=== PATIENT | male | born 1945 | race Caucasian/White ===

== ENCOUNTER → 2022-03-08 10:54 | Outpatient (CLI) | payer MEDICARE, SELFPAY ==
--- NOTE | 2022-03-08 | DI.RAD.S_ITS ---
PROCEDURE: FL BARIUM SWALLOW W SPEECH INDICATIONS: CHOKING COMPARISON: None. TECHNIQUE: Examination was conducted in conjunction with speech pathology per standard protocol. In the lateral projection, filming was performed of the patient swallowing. AP projection filming may also be performed with patient swallowing. COMPARISON: FINDINGS: Function: The oral preparatory phase appears normal, with proper containment. The subsequent oral propulsive phase, pharyngeal phase, and esophageal phase of swallowing also appear normal with all proffered substances. No laryngotracheal penetration or aspiration. No pathologic vallecular pooling. Morphology: No cricopharyngeal bar is identified. No cervical esophageal webs. No Zenker's diverticulum. No strictures. IMPRESSION: No laryngotracheal penetration or aspiration. Limited evaluation of the esophagus demonstrated distal esophageal dysmotility. Please see independent report generated by the speech pathologist for further detailed specifics and characterization of the modified speech swallow study. Dictated by: Leigh Vidal MD, PhD on 03/08/2022 at 13:29 Approved by: Leigh Vidal MD, PhD on 03/08/2022 at 13:30
--- NOTE | 2022-03-08 12:25 | ST.SWALLOW ---
Visit Care Team Role Provider Type Jose Banks MD Attending Provider Non-Staff Primary Care Provider Referring Provider Specialty: Family Practice Address: [address] [place] [address], [id number] Email: Modified Barium Swallow Study [employer] Modified Barium Swallow Study Start: 03/08/22 12:08 Freq: Status: Active Protocol: Document 03/08/22 12:09 ZS (Rec: 03/08/22 12:25 ZS [id number]) Modified Barium Swallow Study Total Time Visit Start Time 11:20 Visit Stop Time 11:40 Total Visit Minutes 20 Setting Setting Outpatient Care Patient Information Identification Type Name Patient History Dereck is a 77-year old male who has been experiencing food going down the wrong way about 2-3 times a month across the last 3 years. 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 He stated increased difficulty when eating crumbly or dry foods and will drink water to help. Pt added he gets very gassy and burpy when he is taking pills and will sometimes burp up liquid, though pt stated this is rare . Subjective Observations Dereck presented with left labial weakness and slightly slurred speech. Procedure and process was explained to the pt and he expressed agreement. Patient Positioning Position View Lat-A/P Imaging Lateral View Textures Administered Trials Presented Thin Liquid via Cup,[place] Liquid via Cup,Honey Liquid via Spoon,Regular Textures Oral Phase Source: MBSIMP (TM) (C) Bolus Specific Scoring Grid Lip Closure No Impairment (WNL) Tongue Control During Bolus Hold No Impairment (WNL) Bolus Prep/Mastication No Impairment (WNL) Bolus Transport/Lingual Motion No Impairment (WNL) A/P Lingual Propulsion Delay No Oral Residue Minimal Impairment Residue Clearing No Impairment (WNL) Nasal Regurgitation No Additional Oral Phase Observations No anterior or posterior loss of bolus during tongue hold. Timely and efficient mastication and a/p propulsion of bolus observed. Minimal residue observed following swallow, which pt cleared spontaneously with a second swallow. Pharyngeal Phase Source: MBSIMP (TM) (C) Bolus Specific Scoring Grid Delayed Initiation of Pharyngeal Swallow Yes: head of bolus in valleculae Soft Palate Elevation No Impairment (WNL) Tongue Base Strength/Range of Motion No Impairment (WNL) Residue Along the Tongue Base Yes Clearance of Residue Along Tongue Base WFL Laryngeal Elevation No Impairment (WNL) Anterior Hyoid Movement Mild Impairment Epiglottic Range of Motion No Impairment (WNL) Vallecular Residue Yes Clearance of Vallecular Residue No Impairment (WNL) Laryngeal Vestibular Closure No Impairment (WNL) Pharyngeal Stripping Wave No Impairment (WNL) Pharyngeal Contraction No Impairment (WNL) Posterior Pharyngeal Wall Residue No Upper Esophageal Sphincter Opening No Impairment (WNL) Residue in the Pyriform Sinuses No Pharyngoesophageal Backflow Observed No Additional Pharyngeal Phase Observations Delayed initiation of pharyngeal swallow, with the head of the bolus in the valleculae. Mild-moderately impaired hyolaryngeal excursion, though this did not impact laryngeal vestibular closure or epiglottic inversion. No instances of aspiration or penetration observed across trials and no sensations of food going the wrong way reported by pt. Minimal residue observed in valleculae, which pt cleared with spontaneous second swallow. No residue observed on posterior pharyngeal wall or in pyriforms. A/P View Textures Administered Trials Presented Thin Liquid via Cup,Barium Tablet A/P View Observations Pharyngeal Contraction No Impairment (WNL) Esophageal Function Slowed Clearing,Poor Motility Additional Observations Esophageal dysmotility observed with slowed clearing and retrograde flow below the PES. Several swallows of water required for barium tablet to clear esophagus. Clinical Impressions Dysphagia Type Swallow WNL Findings The pt presents with swallow WNL. Esophageal dysmotility observed with retrograde flow of bolus below PES and discussed possible referral to GI. Discussed continued use of alternating liquids and solids to aid in swallowing dry and crumbly foods. Provided pt education regarding normal swallow mechanism and penetration/ aspiration. Patient Appropriate for Therapy No Recommendations Diet Liquids Order Thin Diet Order Regular Medication Recommendation As Tolerated Aspiration Precautions Recommended Precautions Upright at 90 Degrees, Alternate Liquids/Solids,Small Bites/Sips Treatment Plan Recommended Referrals GI Consult
== END ==
PROVIDERS: PCP Family Medicine; Referring Provider Family Medicine; Visit Provider Family Medicine
DX: R09.89 Other specified symptoms and signs involving the circulatory and respiratory systems (principal); K22.89 Other specified disease of esophagus
CPT/HCPCS: 74230; 92611